=== PATIENT | male | born 1980 | race Asian ===

== ENCOUNTER 2019-12-10 06:51 | Day surgery (SDC) | payer OTHER ==
--- NOTE | 2019-12-09 11:36 | Pre-Procedure Note/Attestation ---
Pre-Procedure Note/Attestation Complete Prior to Procedure Planned Procedure: bilateral Procedure Narrative: 1. Septoplasty 2. SMR inf right turbinate 3. SMR inf left turbinate Indications for Procedure Pre-Operative Diagnosis: 1. Nasal septal deviation 2. SMR right inferior turbinate 3. SMR left inferior turbinate. Attestation I attest that I discussed the nature of the procedure; its benefits; risks and complications; and alternatives (and the risks and benefits of such alternatives ), prior to the procedure, with the patient (or the patient's legal client relations representative). I attest that, if there was a reasonable possibility of needing a blood transfusion, the patient (or the patient's legal client relations representative) was given the [place] [facility] standardized written summary, pursuant to the [place] Blood Safety Act ([place] Health and Safety Code # 1645, as amended). I attest that I re-evaluated the patient just prior to the surgery and that there has been no change in the patient's H&P done by pts. PMD and reviewed by me. Darell Davila MD Dec 09, 2019 11:36
--- NOTE | 2019-12-09 11:37 | Brief Operative Note ---
Immediate Post Operative Note Operative Note Chief Complaint: Nasal airway obstruction Pre-op Diagnosis: 1. Nasal septal deviation 2. SMR right inferior turbinate 3. SMR left inferior turbinate. Procedure: 1. Septoplasty 2. SMR right inferior turbinate 3. SMR left inferior turbinate Post-op Diagnosis: same as pre-op Surgeon: Darell Davila Orthopedic Tech: none Additional Surgeons: none Anesthesiologist: MD Mohinder Anesthesia: general Specimen: none Complications: none Condition: stable Fluids: D5LR Estimated Blood Loss: volume - 50 cc Drains: none Packing: Sino-Nasal gel Implant(s) used?: No Darell Davila MD Dec 09, 2019 11:37
[~2019-12-10] VITALS: Ht 170.2 cm; Wt 85.2 kg
[2019-12-10] VITALS (17 sets, daily range): BP systolic 91–115; BP diastolic 62–82
[2019-12-10] MEDS ORDERED: HYDROcodone/Acetamin 5/325 tab ORAL PRN (07:00)
[2019-12-10] MEDS ORDERED: HYDROcodone/Acetamin 7.5/325 tab ORAL PRN (07:00)
[2019-12-10] MEDS ORDERED: Atropine Sulfate 0.4mg/ml inj IVP PRN (07:00)
[2019-12-10] MEDS ORDERED: fentaNYL 100 mcg/2 mL IV PRN (07:00)
[2019-12-10] MEDS ORDERED: Midazolam 2mg/2ml Inj IVP PRN (07:00)
[2019-12-10] MEDS ORDERED: Lidocaine 1% Plain 30 ml INJ ONE (07:00)
[2019-12-10] MEDS ORDERED: propofoL 1,000mg/100ml IV ONE (07:00)
[2019-12-10] MEDS ORDERED: LR 1000ml 1,000 ML IVLG SCH (07:00)
[2019-12-10] MEDS ORDERED: DiphenhydrAMINE 50mg/ml Inj IVP PRN (07:00)
[2019-12-10] MEDS ORDERED: Hydromorphone 0.5mg/0.5ml inj IVP PRN (07:00)
[2019-12-10] MEDS ORDERED: oxyCODONE HCL/Acetaminophen 5/325mg ORAL PRN (07:00)
[2019-12-10] MEDS ORDERED: Labetalol 5mg/ml 20ml vial IV PRN (07:00)
[2019-12-10] MEDS ORDERED: Acetaminophen (Non formulary) 100 ML IV ONE (07:00)
[2019-12-10] MEDS ORDERED: Metoclopramide 10mg/2ml Inj IVP PRN ×2 (07:00→08:45)
[2019-12-10] MEDS ORDERED: Lidocaine 1% MPF 10mg/ml 5ml ONE (07:00)
[2019-12-10] MEDS ORDERED: LORazepam Inj 2mg/ml 1ml IV PRN (07:00)
[2019-12-10] MEDS ORDERED: Meperidine 25mg/0.5ml Inj (FOR RIGORS ONLY) IV PRN (07:00)
[2019-12-10] MEDS ORDERED: Ketorolac 30mg Inj IV PRN ×2 (07:00)
[2019-12-10] MEDS ORDERED: Sodium Chloride 10ml vial INJ ONE (07:00)
--- NOTE | 2019-12-10 07:02 | Immediate Post-Op Evaluation ---
Immediate Post-Op Evalulation Immediate Post-Op Evalulation Procedure: Septoplasty, SMR Turbinates Date of Evaluation: Dec 10, 2019 Time of Evaluation: 08:58 IV Fluids: 700 LR Blood Products: 0 Estimated Blood Loss: 50 Urinary Output: 0 Blood Pressure Systolic: 91 Blood Pressure Diastolic: 62 Pulse Rate: 80 Respiratory Rate: 16 O2 Sat by Pulse Oximetry: 99 Temperature (Fahrenheit): 97.6 Pain Score (1-10): 2 Nausea: No Vomiting: No Complications 0 Patient Status: awake, reacts, patent, none Hydration Status: adequate Dru Gram Ancef IV Given Within 1 Hr of Incision: Yes Time Given: 07:51 Cristobal Vines MD Dec 10, 2019 07:02
[2019-12-10] MEDS ORDERED: ceFAZolin sod 1 GM in D5W 55 ML IV ONE (07:15)
[2019-12-10] MEDS ORDERED: Cocaine HCl 4% 4ml vial TOPIC ONE (07:17)
[2019-12-10] MEDS ORDERED: Bupivacaine w/Epi 0.5% 30ml Vial INJ ONE (07:18)
[2019-12-10] MEDS ORDERED: Lidocaine 1% 10mg/ml/Epi 0.005mg/ml 30ml vial INJ ONE (07:18)
[2019-12-10] MEDS ORDERED: NS Irrig 1000ml IRRIG ONE ×2 (07:20→07:58)
[2019-12-10] MEDS ORDERED: Sterile Water Irrig 1000ml IRRIG ONE (07:30)
[2019-12-10] MEDS ORDERED: LR 1000ml ONE (07:30)
[2019-12-10] MEDS ORDERED: GABAPENTIN600 MG ORAL (07:42)
[2019-12-10] MEDS ORDERED: vivance PO (07:42)
[2019-12-10] MEDS ORDERED: BUPROPION XL300 MG ORAL (07:42)
[2019-12-10] MEDS ORDERED: PROZAC40 MG ORAL (07:42)
--- NOTE | 2019-12-10 08:16 | Anethesia Preoperative Eval ---
Anesthesia Pre-op PMH/ROS General Date of Evaluation: Dec 10, 2019 Time of Evaluation: 07:21 Anesthesiologist: Mohinder ASA Score: ASA 2 Mallampati Score Class I : Soft palate, uvula, fauces, pillars visible Class II: Soft palate, uvula, fauces visible Class III: Soft palate, base of uvula visible Class IV: Only hard plate visible Mallampati Classification: Class II Surgeon: Lola Diagnosis: Nasal Deformity Surgical Procedure: Septoplasty, SMR Turbinates Anesthesia History: none Family History: no anesthesia problems Allergies: Coded Allergies: GRASS POLLEN (Verified Allergy, Intermediate, WATERY EYES, ITCHING, ) Medications: see eMAR Patient NPO?: Yes Past Medical History Pulmonary: Reports: MATEO Neurologic/Psychiatric: Reports: depression/anxiety, other - ADHD Other: obesity - BMI 30 Anesthesia Pre-op Phys. Exam Physician Exam Last Vital Signs Date Time Temp Pulse Resp B/P (MAP) Pulse Ox O2 Delivery O2 Flow Rate FiO2 12/10/19 07:30 Room Air 12/10/19 07:21 98.1 92 20 107/75 100 Constitutional: NAD Neurologic: CN 2-12 intact Cardiovascular: RRR Respiratory: CTA Gastrointestinal: S/NT/ND Airway Exam Mallampati Score: Class II MO: limited ROM: full Teeth: intact Anesthesia Pre-op A/P Risk Assessment & Plan Assessment: ASA 2 Plan: GA, SED Status Change Before Surgery: No Pre-Antibiotics Dru Gram Ancef IV Given Within 1 Hr of Incision: Yes Time Given: 07:51 Cristobal Vines MD Dec 10, 2019 08:16
--- NOTE | 2019-12-10 08:21 | 48 Hour Post Anesthesia Eval ---
Post Anesthesia Evaluation Procedure: Septoplasty, SMR Turbinates Date of Evaluation: Dec 10, 2019 Time of Evaluation: 11:12 Blood Pressure Systolic: 101 0: 72 Pulse Rate: 82 Respiratory Rate: 18 Temperature (Fahrenheit): 98 O2 Sat by Pulse Oximetry: 100 Airway: patent Nausea: No Vomiting: No Pain Intensity: 2 Hydration Status: adequate Cardiopulmonary Status: Stable Mental Status/LOC: patient returned to baseline Follow-up Care/Observations: 0 Post-Anesthesia Complications: 0 Follow-up care needed: N/A Cristobal Vines MD Dec 10, 2019 08:21
[2019-12-10] MEDS ORDERED: HYDROmorphone 1mg/ml Carpuject SUBQ PRN (08:45)
[2019-12-10] MEDS ORDERED: NORCO 5-325 TA1 EAC1 ORAL (08:46)
[2019-12-10] MEDS ORDERED: AMOXICILLIN500 MG ORAL (08:46)
--- NOTE | 2019-12-10 08:48 | Discharge Instructions ---
Discharge Instructions Discharge Instructions Follow up with: pt has appt already at Dr. Davila's office next week Diet: regular Resume Normal Activity?: No Activity: light activity Pneumonia Vaccine: pt refused vaccine Influenza Vaccine (Dec to May): pt refused vaccine Follow Up Orders Pt. has printed instructions and medication which were reviewed with pt at his pre op appt. last week. Return to Work/School on: Dec 24, 2019 Special Instructions ice to face x 48 hours For Congestive Heart Failure Reminder Report to your physician any weight gain of 5 pounds or more in one week. Darell Davila MD Dec 10, 2019 08:48
[2019-12-10] MEDS ORDERED: Midazolam 2mg/2ml Inj ONE (08:51)
[2019-12-10] MEDS ORDERED: fentaNYL 100 mcg/2 mL IV ONE (08:51)
--- NOTE | 2019-12-10 09:44 | Operative Note - Dictated ---
DATE OF OPERATION: 12/10/2019 SURGEON: Darell Davila MD. LUMP INSPECTOR: None. ANESTHESIOLOGIST: Cristobal Vines MD. ANESTHESIA: LMA general anesthesia as well as 10 mL of 1% lidocaine with 1:100,000 epinephrine and Marcaine 0.5% with 1:200,000 epinephrine as well as 4 mL of 4% topical cocaine placed on four nasal pledgets, two on either nostril accounted for at the end of the case. PREOPERATIVE DIAGNOSES: 1. Septal deviation. 2. Hypertrophied right and left inferior turbinates. 3. Sleep apnea. POSTOPERATIVE DIAGNOSES: 1. Septal deviation. 2. Hypertrophied right and left inferior turbinates. 3. Sleep apnea. FINDINGS: Septal deviation, large spur on the right side with hypertrophied right and left inferior turbinates. PROCEDURE: 1. Septoplasty. 2. Submucous resection, right inferior turbinate. 3. Submucous resection, left inferior turbinate. TECHNIQUE: The patient was prepped and draped in the usual manner via LMA general anesthesia. Injection with the aforementioned lidocaine, Marcaine, and epinephrine mixture a total of 9 mL. Four nasal pledgets were placed on the nose. Time-out was performed. All agreed as the equipment and procedure to be done. Initially, an incision was made in the right anterior-inferior aspect of the right turbinate. I then passed a radiofrequency wand, setting of 6, 10 seconds coated with saline gel x2 minutes outfractured with a Boies elevator. I turned my attention to the left inferior turbinate. Incision was made anterior inferior aspect. Radiofrequency wand passed x2 setting of 6 after coating with saline gel 10 seconds each time. I then outfractured with a Boies elevator. I then elevated the [place] incision with a 15 blade, subperiosteally and subperichondrially with a dental elevator. I then was able to remove the lower 4 mm of the quadrangular cartilage leaving a centimeter anterior for support. I then removed a large vomer on the lower aspect of the right side of the airway. I then closed with two 4-0 plain sutures. Area was suctioned clean and I placed sinonasal gel one syringe between the two sides about 60% on the right side. ESTIMATED BLOOD LOSS: 50 mL. COUNTS: None. DRAINS: None. The patient awake and in stable before, throughout and after the procedure in the recovery room 15 minutes later. He will stay overnight as a precaution because he does have sleep apnea and did have anesthesia. He should go home in the morning without difficulty. Darell Davila M.D. DR: MOLLY JOB#: [id number] CC:
[2019-12-10] MEDS: HYDROcodone/Acetamin 5/325 tab ORAL PRN (20:19)
[2019-12-11] VITALS: BP 113/77
[2019-12-11] MEDS: HYDROcodone/Acetamin 5/325 tab ORAL PRN (00:20)
[2019-12-11 04:00] VITALS: BP 113/78
== END 2019-12-11 08:29 | disposition home or self-care (01) ==
LOC: SUR 06:51 → 3E 10:16
DX: J34.2 Deviated nasal septum (principal); J34.3 Hypertrophy of nasal turbinates; G47.30 Sleep apnea, unspecified; F32.9 Major depressive disorder, single episode, unspecified; F41.9 Anxiety disorder, unspecified; E66.9 Obesity, unspecified; F90.9 Attention-deficit hyperactivity disorder, unspecified type; Z68.29 Body mass index [BMI] 29.0-29.9, adult
CPT/HCPCS: 30140; 30520; 94003; C9046; J0131; J0690; J1100; J2001; J2250; J2405; J2704; J3010; J7120; U0002; 94150